=== PATIENT | female | born 1965 | race Caucasian/White ===

== ENCOUNTER 2019-04-16 20:53 | Emergency (ER) | payer BC ==
[~2019-04-16] VITALS: Ht 172.7 cm; Wt 117.5 kg
--- NOTE | 2019-04-16 21:03 | NUR ---
Patient came in complaining of difficulty breathing. Patient denies any pain. Patient has audible wheezing sounds. patient o2 saturation is 98% on room air. Patient has been seen my ER MD, Dr. Roldan.
--- NOTE | 2019-04-16 21:11 | NUR ---
RT at bedside providing treatment
[2019-04-16] MEDS ORDERED: predniSONE 20 MG TABLET ONE (21:12)
[2019-04-16] MEDS ORDERED: ALBUTEROL SULFATE 2.5 MG/3 ML NEBU ONE (21:13)
[2019-04-16] MEDS ORDERED: IPRATROPIUM BROMIDE 0.5 MG/2.5 ML NEBU ONE (21:14)
[2019-04-16] MEDS ORDERED: IPRATROPIUM BROMIDE 0.5 MG/2.5 ML NEBU NEB ONE (21:15)
[2019-04-16] MEDS ORDERED: predniSONE 20 MG TABLET PO ONE (21:15)
[2019-04-16] MEDS ORDERED: ALBUTEROL SULFATE 2.5 MG/3 ML NEBU NEB ONE (21:15)
--- NOTE | 2019-04-16 21:30 | NUR ---
patient received breathing treatment and stated she is feeling better and the treatment was effective.
[2019-04-16 21:43] VITALS: BP 136/76
--- NOTE | 2019-04-16 21:43 | NUR ---
Patient discharged to home in stable conditon. Written and verbal after care instructions given. Patient verbalizes understanding of instructions. patient self ambulatory with steady gait. exit care package and personal belongings taken with patient at discharge. Patient in stable condition and VSS. patient is alert and oriented x4. will be dricing the patient home.
== END 2019-04-16 21:44 | disposition home or self-care (01) ==
LOC: ER 20:53
DX: J98.01 Acute bronchospasm (principal)
CPT/HCPCS: 94640; 99283; J7512; A4663; J3590